=== PATIENT | female | born 1985 | race Two or more races ===

== ENCOUNTER 2016-11-21 12:37 | Emergency (ER) | payer OTHER ==
[~2016-11-21] VITALS: Ht 162.6 cm; Wt 72.6 kg
[2016-11-21 12:40] VITALS: BP 126/72
== END 2016-11-21 13:54 | disposition home or self-care (01) ==
LOC: ER 12:39
DX: H92.01 Otalgia, right ear (principal)
CPT/HCPCS: 99283; A4606; Z7610

== ENCOUNTER 2016-11-23 21:23 | Emergency (ER) | payer OTHER ==
[~2016-11-23] VITALS: Ht 162.6 cm; Wt 77.1 kg
[2016-11-23 21:41] VITALS: BP 125/68
--- NOTE | 2016-11-23 22:44 | NUR ---
PT CAME TO NURSES' STATION A ND STATED "AM LEAVING RIGHT NOW CAUSE I GOTTA GO AND BE WITH MY BABY". PA MADE AWARE.
== END 2016-11-23 22:46 | disposition left against medical advice (07) ==
LOC: ER 21:25
DX: Z53.21 Procedure and treatment not carried out due to patient leaving prior to being seen by health care provider (principal)

== ENCOUNTER 2017-06-06 22:40 | Emergency (ER) | payer OTHER ==
[~2017-06-06] VITALS: Ht 162.6 cm; Wt 83.0 kg
[2017-06-06 22:49] VITALS: BP 141/84
--- NOTE | 2017-06-06 23:20 | NUR ---
Hasmukh Modi at bedside to evaluate patient.
== END 2017-06-07 00:10 | disposition home or self-care (01) ==
LOC: ER 22:41
DX: J20.9 Acute bronchitis, unspecified (principal); J02.9 Acute pharyngitis, unspecified
CPT/HCPCS: 99283; A4606; Z7610